=== PATIENT | male | born 1990 | race Two or more races ===

== ENCOUNTER 2017-08-13 10:49 | Emergency (ER) | payer OTHER ==
[2017-08-13] MEDS ORDERED: Dexamethasone 10 MG/ML VIAL ONE (11:37)
[2017-08-13] MEDS ORDERED: Lidocaine 1% (PF) 30 ML VIAL ONE (11:37)
[2017-08-13] MEDS ORDERED: cefTRIAXone\\ROCEPHIN 1 GM VIAL ONE (11:37)
== END 2017-08-13 12:03 | disposition home or self-care (01) ==
LOC: ERS 10:49
DX: J20.9 Acute bronchitis, unspecified (principal)
CPT/HCPCS: 96372; J0696; J1100; J2001

== ENCOUNTER 2019-03-09 14:32 | Emergency (ER) | payer OTHER, SELFPAY ==
--- NOTE | 2019-03-09 15:27 | RAD ---
EXAM: Chest 2 views: HISTORY: Wheezing and cough COMPARISON: None. FINDINGS: There is a normal-sized cardiomediastinal silhouette. There is no evidence of consolidation, mass, or pleural effusion. The bones are unremarkable. IMPRESSION: No evidence of acute cardiopulmonary disease
== END 2019-03-09 16:15 | disposition home or self-care (01) ==
LOC: ERS 14:32
DX: J20.9 Acute bronchitis, unspecified (principal)
CPT/HCPCS: 71046

== ENCOUNTER 2020-03-20 23:10 | Emergency (ER) | payer SELFPAY ==
[2020-03-21 04:55] LABS: SARS-CoV-2 PCR by NAA Not Detected (NotDetected)
== END 2020-03-20 23:40 | disposition home or self-care (01) ==
LOC: ERS 23:10
DX: R09.81 Nasal congestion (principal); Z20.822 Contact with and (suspected) exposure to COVID-19; F17.210 Nicotine dependence, cigarettes, uncomplicated
CPT/HCPCS: 87635; 99283; U0003; U0005